=== PATIENT | male | born 1980 ===

== ENCOUNTER 2022-09-06 07:22 | Outpatient (CLI) | payer BC, SELFPAY ==
--- NOTE | ~2022-09-06 | XR_ITS ---
EXAMINATION: SACRUM/COCCYX DATE: 09/06/2022 08:07 INDICATION: Sacral back pain TECHNIQUE: Three views sacrum/coccyx FINDINGS: No prior studies for comparison. There is no displaced fracture of the sacrum. The coccyx demonstrates overall normal morphology with out acute angulation.There is lower lumbar spondylosis there is a sclerotic lesion in left superior p ubic ramus, most likely benign bone island if there is no clinical history of malignancy. IMPRESSION: 1. No acute displaced osseous abnormality of the sacrum. Suspicion for occult or nondisplaced sacral fracture can either be evaluated with CT or MRI. 2. Grossly normal morphology to the coccyx without acute angulation. However, due to the wide range of normal variation of the coccyx, acute injury would be best evaluated by clinical examination and patient's symptoms. Reviewed, dictated and finalized at location B.
== END 2022-09-06 07:23 ==
PROVIDERS: PCP Family Medicine; Visit Provider Family Medicine
DX: M53.3 Sacrococcygeal disorders, not elsewhere classified (principal)
CPT/HCPCS: 72220

== ENCOUNTER → 2023-03-14 10:10 | Outpatient (CLI) | payer BC, SELFPAY ==
--- NOTE | ~2023-03-14 | MR_ITS ---
EXAMINATION: MR lumbar spine wo con DATE: 03/14/2023 10:52 INDICATION: Low back pain post fall on snow. Intervertebral disc degeneration. TECHNIQUE: Magnetic resonance imaging (MRI) of the lumbar spine was performed without intravenous con trast. Sequences included sagittal T2-weighted FSE, sagittal T2-weighted FS FSE, sagittal T1-weighted FSE, and axial T2-weighted FSE. COMPARISON: None FINDINGS: 5 degrees lumbar levocurvature. Sagittal alignment is normal. Vertebral body heights are normal. Delmi re disc height loss with fibrofatty degenerative endplate changes at L5-S1. There is associated remod eling of the posterior aspect of the superior endplate of S1. Marrow signal is otherwise normal. Mild likely physiologic anterior wedging at T12 and L1. Additional mild disc height loss at T11-T12 and T 12-L1. Minimal disc height loss at L4-L5. The conus medullaris terminates at L1. There is normal sign al in the caudal spinal cord. 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 Paravertebral soft tissues are unremarkable. The following di sc levels are specifically discussed: T12-L1: Disc is mildly bulging. There is mild bilateral facet joint osteoarthritis. There is no neura l foraminal stenosis. There is no central canal stenosis. L1-L2: The disc does not extend beyond the endplate margin. There is mild bilateral facet joint osteo arthritis. There is no neural foraminal stenosis. There is no central canal stenosis. L2-L3: Minimal bilateral foraminal zone disc protrusions. There is mild bilateral facet joint osteoar thritis. There is mild bilateral neural foraminal stenosis. There is mild central canal stenosis. L3-L4: Minimal bilateral foraminal zone disc protrusions. There is mild left and mild to moderate rig ht facet joint osteoarthritis. There is mild bilateral neural foraminal stenosis. There is mild centr al canal stenosis. L4-L5: Disc is bulging. There is hypertrophy of the ligamentum flavum. There is moderate left and mo derate to severe right facet joint osteoarthritis. Small synovial cyst at the medial side of the left facet joint. There is mild to moderate bilateral neural foraminal stenosis. There is mild to moderat e central canal stenosis with narrowing of the left and right lateral recesses. L5-S1: Disc is bulging with superimposed annular fissure and moderate size central disc extrusion wit h disc material extending a few millimeter cephalad and caudal to the level of the endplates. There i s moderate bilateral facet joint osteoarthritis. There is moderate bilateral, left greater than right neural foraminal stenosis. There is mild central canal stenosis with narrowing of the left and right lateral recesses. IMPRESSION: 1. Severe lumbosacral spondylosis with mild spondylosis of the more cephalad lumbar and lower thoraci c spine. Reviewed, dictated and finalized at location A. [employer] SERVICE TECHNICIAN IMPRESSION: 1. Severe lumbosacral spondylosis with mild spondylosis of the more cephalad ventura mbar and lower thoracic spine.
== END ==
PROVIDERS: PCP Internal Medicine; Visit Provider Neurological Surgery
DX: M47.897 Other spondylosis, lumbosacral region (principal); M47.896 Other spondylosis, lumbar region; M47.894 Other spondylosis, thoracic region
CPT/HCPCS: 72148